=== PATIENT | female | born 1980 ===

== ENCOUNTER 2016-11-22 16:43 | Emergency (ER) | payer OTHER ==
--- NOTE | 2016-11-22 16:59 | UCPHY ---
H & P Patient Type: Established HPI/ROS: HPI CHIEF COMPLAINT: Cough, congestion HISTORY OF PRESENT ILLNESS: this patient is a 36-year-old female, denies any significant medical or surgical history she presents to the urgent care with 3 days of cough, sinus congestion, runny nose, nonproductive cough as well as faint wheezing. Denies significant shortness of breath or chest pain. Denies fever. Denies nausea vomiting. Main complaint is sinus congestion and cough. Cough is keeping her up at night. Past Medical History: Denies medical history Past Surgical History: Cholecystectomy, Social History: denies use of drugs alcohol tobacco products Family History: noncontributory ROS REVIEW OF SYSTEMS: A comprehensive 10 point review of systems is otherwise negative aside from elements mentioned in the history of present illness. Exam Constitutional appears well nontoxic, triage nursing summary reviewed, vital signs reviewed, awake/alert. Eyes normal conjunctivae and sclera, EOMI, PERRLA. HENT posterior pharynx normal, bilateral TMs are clear, no fluid present, patient has a bronchitic sounding cough, normal inspection, atraumatic, moist mucus membranes, no epistaxis, neck supple/ no meningismus, no raccoon eyes. Respiratory clear to auscultation bilaterally, normal breath sounds, no respiratory distress, no wheezing. Cardiovascular rate normal, regular rhythm, no murmur, no edema, distal pulses normal. Gastrointestinal soft, non-tender, no rebound, no guarding, normal bowel sounds, no distension, no pulsatile mass. Genitourinary no CVA tenderness. Musculoskeletal no midline vertebral tenderness, full range of motion, no calf swelling, no tenderness of extremities, no meningismus, good pulses, neurovascularly intact. Skin pink, warm, & dry, no rash, skin atraumatic. Neurologic awake, alert and oriented x 3, AAOx3, moves all 4 extremities equally, motor intact, sensory intact, CN II-XII intact, normal cerebellar, normal vision, normal speech. Psychiatric normal mood/affect. Heme/Lymph/Immune no lymphadenopathy. Differential Diagnosis: includes but is not limited to in a particular order, upper respiratory tract infection, sinusitis, viral syndrome, bronchitis Medical Decision Making: this patient here in the Urgent Care appears well nontoxic no fever, no hypoxia, clinical exam most likely has viral syndrome or upper respiratory tract infection. Patient be placed on [place] for cough suppression, albuterol inhaler, prednisone, and azithromycin. Guaifenesin. Patient understands to if she has any worsening symptoms questions or concerns to return to the urgent care emergency room this includes high fever, vomiting or significant shortness of breath. Source: Patient - Personal History Tetanus Vaccine Date: 2014 - Medical/Surgical History Hx Asthma: Yes Hx Chronic Respiratory Disease: No Hx Diabetes: No Hx Cardiac Disease: No Hx Renal Disease: No Hx Cirrhosis: No Hx Alcoholism: No Hx HIV/AIDS: No Hx Splenectomy or Spleen Trauma: No Other PMH: cholecystectomy 2007, c-sec - Family History Significant Family History: No pertinent family hx - Social History Smoking Status: Never smoked Allergies/Adverse Reactions: No Known Allergies Allergy (Verified 11/22/16 17:00) Home Medications: Medication Instructions Recorded Fluticasone Hfa 220 Mcg [Flovent 2 puffs IH DAILY #1 mdi 02/10/16 220 MCG Hfa MDI (*)] AZITHROMYCIN [Z-PACK] 250 mg PO DAILY #6 tab 11/22/16 Albuterol [Proventil Inhaler HFA 1 - 2 puffs IH Q4H #1 mdi 11/22/16 (*)] Guaifenesin [Guaifenesin ER] 600 mg PO BID #14 tab.er.12h 11/22/16 Hydrocodone/APAP 5/325 [[place] 1 - 2 tab PO Q4H PRN #7 tab 11/22/16 5/325] predniSONE 60 mg PO DAILY #15 tab 11/22/16 Departure - Departure Disposition: Home, Routine, Self-Care Clinical Impression: Upper respiratory tract infection Qualifiers: URI type: unspecified viral URI Qualified Code(s): J06.9 - Acute upper respiratory infection, unspecified; B97.89 - Other viral agents as the cause of diseases classified elsewhere Condition: Good Instructions: Upper Respiratory Infection (ED), Acute Bronchitis (ED), Cold Symptoms (ED), Acute Cough (ED) Additional Instructions: 1.Drink lots of fluids 2. stay well-hydrated 3. return to the urgent care or emergency room if you have any worsening symptoms questions or concerns includes worsening cough shortness of breath or high fever or vomiting. Referrals: LOCO ÁLVAREZ,. [Primary Care Provider] - As per Instructions Prescriptions: Albuterol [Proventil Inhaler HFA (*)] 1 - 2 puffs IH Q4H #1 mdi AZITHROMYCIN [Z-PACK] 250 mg PO DAILY #6 tab Guaifenesin [Guaifenesin ER] 600 mg PO BID #14 tab.er.12h Hydrocodone/APAP 5/325 [[place] 5/325] 1 - 2 tab PO Q4H PRN #7 tab PRN Reason: Pain, Moderate predniSONE 60 mg PO DAILY #15 tab - PQRS PQRS Measurement: n/a
[2016-11-22 17:04] VITALS: BP 130/76; PULSE 82; RESP 14; TEMP 98.2; O2SAT 95
== END 2016-11-22 17:39 | disposition home or self-care (01) ==
LOC: CED 16:43
DX: R05 Cough (principal); R09.81 Nasal congestion; R09.89 Other specified symptoms and signs involving the circulatory and respiratory systems
CPT/HCPCS: 99214-PO; G0463-PO

== ENCOUNTER 2018-04-02 13:03 | Emergency (ER) | payer OTHER ==
[2018-04-02] MEDS ORDERED: predniSONE 20 MG TAB PO ONE (13:57)
--- NOTE | 2018-04-02 14:02 | EDPHY ---
H & P Time Seen by Provider: 04/02/18 13:21 HPI/ROS: CHIEF COMPLAINT: Cough HISTORY OF PRESENT ILLNESS: Patient is a 37-year-old female who presents to the emergency department with ongoing cough. Her symptoms have been persistent for the past 2-3 weeks. She was seen by her primary care physician as well as the ER. The 1st visit she was given medicine for nausea. Her nausea and vomiting has resolved. She continues to have a cough. She saw her primary care physician and albuterol was refilled because she has a history of asthma. She has had worsening cough. It is productive of green sputum. She has had no fevers or chills. Mild shortness of breath. No leg pain or swelling. REVIEW OF SYSTEMS: My complete review of systems is negative except as mentioned in the HPI. Past Medical/Surgical History: Includes asthma Smoking Status: Never smoked Physical Exam: Vitals noted GENERAL: Well-appearing, in no acute distress, alert. HEENT: Eyes normal to inspection, normal pharynx, no signs of dehydration. NECK: No thyromegaly, no lymphadenopathy, supple. RESPIRATORY: Coarse breath sounds bilaterally, no rales, rhonchi or wheezing. CVS: Regular rate and rhythm, no rubs, murmurs, or gallops. ABDOMEN: Soft, nontender, nondistended, no organomegaly. BACK: Normal to inspection, no CVA tenderness. SKIN: Normal color, no rash, warm, dry. No pallor. EXTREMITIES: No pedal edema, no calf tenderness, no Homans sign or cords, no joint swelling. NEURO/PSYCH: Alert and oriented x3, normal mood and affect, normal motor sensory exam. No obvious cranial nerve deficit. Constitutional: Initial Vital Signs Temperature (C) 36.9 C 04/02/18 13:10 Heart Rate 90 04/02/18 13:10 Respiratory Rate 16 04/02/18 13:10 Blood Pressure 104/83 H 04/02/18 13:10 O2 Sat (%) 94 04/02/18 13:10 O2 Delivery Mode Room Air Allergies/Adverse Reactions: No Known Allergies Allergy (Verified 04/02/18 13:08) Home Medications: Medication Instructions Recorded Albuterol Hfa Anes Only 04/02/18 Zyrtec 04/02/18 levOFLOXACIN [Levaquin] 750 mg PO DAILY #10 tab 04/02/18 predniSONE 20 mg PO DAILY 4 Days tab 04/02/18 Medical Decision Making ED Course/Re-evaluation: In the emergency department I discussed possible etiologies with the patient. I answered all her questions. Chest x-ray: Please refer the dictated report. Patient has right upper zone pneumonia. Please refer the dictated report by the radiologist. I discussed the results with the patient. I answered all her questions. She was given Levaquin, prednisone. She is given warnings prior to leaving. She will return with worsening symptoms. Differential Diagnosis: My differential includes but is not limited to ACS, acute VT, pneumonia, bronchitis, bacteremia, sepsis, respiratory distress Departure - Departure Disposition: Home, Routine, Self-Care Clinical Impression: Exacerbation of asthma Qualifiers: Asthma severity: mild Asthma persistence: intermittent Qualified Code(s): J45.21 - Mild intermittent asthma with (acute) exacerbation Pneumonia Qualifiers: Pneumonia type: due to unspecified organism Laterality: right Lung location: upper lobe of lung Qualified Code(s): J18.1 - Lobar pneumonia, unspecified organism Condition: Good Instructions: Bacterial Pneumonia (ED) Additional Instructions: You have a pneumonia on x-ray. Take your entire course of antibiotics. Take your entire course of prednisone. Referrals: LOCO ÁLVAREZ [Other] - 5-7 days, call for appt. Prescriptions: levOFLOXACIN [Levaquin] 750 mg PO DAILY #10 tab predniSONE 20 mg PO DAILY 4 Days tab
[2018-04-02 14:26] VITALS: BP 134/83
== END 2018-04-02 14:23 | disposition home or self-care (01) ==
LOC: CED 13:03
DX: J45.21 Mild intermittent asthma with (acute) exacerbation (principal); J18.9 Pneumonia, unspecified organism
CPT/HCPCS: 71046-PO; J7512